=== PATIENT | male | born 1975 | race Caucasian/White ===

== ENCOUNTER 2019-06-15 09:27 | Emergency (ER) | payer OTHER ==
[2019-06-15] MEDS ORDERED: ONDANSETRON HCL INJ/PF 4 MG/2 ML SDV IV ONE ×2 (10:45→13:53)
[2019-06-15] MEDS ORDERED: NORMAL SALINE 1000 ML 1,000 ML IV ONE (10:45)
--- NOTE | 2019-06-15 10:49 | ER Document Report ---
ED Medical Screen (RME) - General Chief Complaint: Difficulty Swallowing Stated Complaint: DIFFICULTY SWALLOWING Time Seen by Provider: 06/15/19 10:37 TRAVEL OUTSIDE OF THE [place] IN LAST 30 DAYS: No - HPI Notes: 06/15/19 10:47 43 year old male to the ED with C/O difficulty swallowing for the past 36 hours. States he feels like something is stuck. States that he has been trying to put down simple fluids like ice chips but when he attempts this, he just vomits. Has a history of reflux and has been on Nexium for some times. Never had a scope. I have performed a medical screening exam on the patient and determined the patient will need further management by mainside provider. I have placed initial orders to help expedite his care. - Related Data Allergies/Adverse Reactions: acetaminophen [From Percocet] Allergy (Verified 06/15/19 10:42) oxycodone [From Percocet] Allergy (Verified 06/15/19 10:42) Home Medications: Synthroid, Fioricet, Torodol, Nexium Past Medical History - Past Medical History Cardiac Medical History: Reports: Hx Hypertension Neurological Medical History: Reports: Hx Migraine Endocrine Medical History: Reports: Hx Diabetes Mellitus Type 2 Past Surgical History: Reports: Hx Orthopedic Surgery - Arthroscopic knee surgery - Immunizations Hx Diphtheria, Pertussis, Tetanus Vaccination: Yes Physical Exam - Vital signs Vitals: Temp Pulse Resp BP Pulse Ox 97.9 F 110 H 14 123/89 H 95 06/15/19 10:08 06/15/19 10:08 06/15/19 10:08 06/15/19 10:08 06/15/19 10:08 Course - Vital Signs Vital signs: Temp Pulse Resp BP Pulse Ox 97.9 F 110 H 14 123/89 H 95 06/15/19 10:34 06/15/19 10:08 06/15/19 10:34 06/15/19 10:08 06/15/19 10:34
[2019-06-15 11:19] LABS: ABSOLUTE BASOPHILS # (AUTO) 0.1 10^3/uL (0.0-0.2); ABSOLUTE EOSINOPHILS # (AUTO) 0.1 10^3/uL (0.0-0.6); ABSOLUTE LYMPHOCYTES (AUTO) 1.8 10^3/uL (0.5-4.7); ABSOLUTE MONOCYTES (AUTO) 0.7 10^3/uL (0.1-1.4); ABSOLUTE NEUT (AUTO) 8.2 10^3/uL (1.7-8.2); BASOPHILS % (AUTO) 0.9 % (0-2); EOSINOPHILS % (AUTO) 0.7 % (0-6); HEMATOCRIT 47.3 % (37.9-51.0); HEMOGLOBIN 16.8 g/dL (13.5-17.0); LYMPHOCYTES % (AUTO) 16.9 % (13-45); MEAN CORPUSCULAR HEMOGLOBIN 30.8 pg (27.0-33.4); MEAN CORPUSCULAR HGB CONC 35.6 g/dL (32.0-36.0); MEAN CORPUSCULAR VOLUME 86 fl (80-97); MONOCYTES % (AUTO) 6.3 % (3-13); PLATELET COUNT 392 10^3/uL (150-450); RED BLOOD COUNT 5.47 10^6/uL (4.35-5.55); RED CELL DISTRIBUTION WIDTH 13.7 % (11.5-14.0); SEGMENTED NEUTROPHILS % (AUTO) 75.2 % (42-78); TOTAL CELLS COUNTED % (AUTO) 100 %; WHITE BLOOD COUNT 10.8 10^3/uL (4.0-10.5)
[2019-06-15 11:40] LABS: ALBUMIN 4.5 g/dL (3.5-5.0); ALKALINE PHOSPHATASE 102 U/L (38-126); ANION GAP 16 (5-19); ASPARTATE AMINO TRANSFERASE 31 U/L (17-59); BILIRUBIN,DIRECT 0.1 mg/dL (0.0-0.4); BILIRUBIN,TOTAL 0.9 mg/dL (0.2-1.3); BLOOD UREA NITROGEN 11 mg/dL (7-20); CALCIUM 9.7 mg/dL (8.4-10.2); CARBON DIOXIDE 24 mmol/L (22-30); CHLORIDE 101 mmol/L (98-107); GLUCOSE 100 mg/dL (75-110); POTASSIUM 3.7 mmol/L (3.6-5.0); TOTAL PROTEIN 7.9 g/dL (6.3-8.2)
--- NOTE | 2019-06-15 12:07 | RADIOLOGY REPORT (SQ) ---
EXAM DESCRIPTION: SOFT TISSUE NECK COMPLETED DATE/TIME: 06/15/2019 11:37 am REASON FOR STUDY: inability to swallow COMPARISON: None. NUMBER OF VIEWS: Two views. TECHNIQUE: AP and lateral radiographic image of the soft tissues of the neck. LIMITATIONS: None. FINDINGS: EPIGLOTTIS: Normal. Contour normal. Aryepiglottic folds normal. PREVERTEBRAL SOFT TISSUES: Normal. No soft tissue swelling. SUBGLOTTIC AREA: Normal. No narrowing. RETROPHARYNGEAL SPACE: Normal. No soft tissue masses. BONES: No significant findings. LUNG APICES: Normal. OTHER: No radiopaque foreign body. No other significant finding. IMPRESSION: NEGATIVE STUDY OF THE SOFT TISSUES OF THE NECK. TECHNICAL DOCUMENTATION: JOB ID: [id number] [employer]- All Rights Reserved Reading location - IP/workstation name: [email or web address]
[2019-06-15] MEDS ORDERED: GLUCAGON,HUMAN RECOMB 1 MG INJ IV ONE (13:53)
--- NOTE | 2019-06-15 13:55 | ER Document Report ---
ED ENT - General Chief Complaint: Difficulty Swallowing Stated Complaint: DIFFICULTY SWALLOWING Time Seen by Provider: 06/15/19 10:37 Primary Care Provider: ANTHONY CARRINGTON MD [NO LOCAL MD] - Follow up as needed Mode of Arrival: Ambulatory Information source: Patient Notes: Patient presents complaining of difficulty swallowing for the past 2 days. Patient states that he will occasionally vomit oral fluids in his saliva. Patient states that he will have similar episodes like this about 3 times a week although his symptoms do not usually last this long. Patient states that he has a pending GI referral, but his appointment is not until July 06. Patient [facility] does have a history of acid reflux although is not currently on any medications. Patient denies any precipitating event that caused his symptoms such as choking on a large piece of food. Patient states that if he concentrates he can force himself to keep liquids down. He states he does this by gritting his teeth. TRAVEL OUTSIDE OF THE [place] IN LAST 30 DAYS: No - HPI Onset/Duration: Waxing and waning Pain Level: 1 Associated symptoms: Difficulty swallowing Similar symptoms previously: Yes Recently seen / treated by doctor: No - Related Data Allergies/Adverse Reactions: acetaminophen [From Percocet] Allergy (Verified 06/15/19 10:42) oxycodone [From Percocet] Allergy (Verified 06/15/19 10:42) Home Medications: Synthroid, Fioricet, Torodol, Nexium Past Medical History - General Information source: Patient, Relative - Social History Smoking Status: Never Smoker Chew tobacco use (# tins/day): Yes Frequency of alcohol use: None Drug Abuse: None Occupation: None Lives with: Spouse/Significant other Family History: Reviewed & Not Pertinent Patient has suicidal ideation: No Patient has homicidal ideation: No - Past Medical History Cardiac Medical History: Reports: Hx Hypertension Neurological Medical History: Reports: Hx Migraine Endocrine Medical History: Reports: Hx Diabetes Mellitus Type 2 GI Medical History: Reports: Hx Gastroesophageal Reflux Disease Psychiatric Medical History: Reports: Hx Post Traumatic Stress Disorder Past Surgical History: Reports: Hx Orthopedic Surgery - Arthroscopic knee surgery - Immunizations Hx Diphtheria, Pertussis, Tetanus Vaccination: Yes Review of Systems - Review of Systems Constitutional: No symptoms reported EENT: Difficulty swallowing. denies: Throat pain Cardiovascular: No symptoms reported. denies: Chest pain Respiratory: No symptoms reported. denies: Cough, Short of breath Gastrointestinal: Vomiting. denies: Abdominal pain Genitourinary: No symptoms reported. denies: Dysuria Male Genitourinary: No symptoms reported Musculoskeletal: No symptoms reported Skin: No symptoms reported Hematologic/Lymphatic: No symptoms reported Neurological/Psychological: No symptoms reported Physical Exam - Vital signs Vitals: Temp Pulse Resp BP Pulse Ox 97.9 F 110 H 14 123/89 H 95 06/15/19 10:08 06/15/19 10:08 06/15/19 10:08 06/15/19 10:08 06/15/19 10:08 - General General appearance: Alert, Anxious In distress: None - HEENT Head: Normocephalic, Atraumatic Eyes: Normal Conjunctiva: Normal Nasal: Normal Mouth/Lips: Normal Mucous membranes: Normal Pharynx: Normal. No: Erythema, Tonsillar hypertrophy, Potential airway comprom. Neck: Normal, Supple. No: Lymphadenopathy - Respiratory Respiratory status: No respiratory distress Chest status: Nontender Breath sounds: Normal. No: Rales, Rhonchi, Stridor, Wheezing Chest palpation: Normal - Cardiovascular Rhythm: Regular Heart sounds: S1 appreciated, S2 appreciated Murmur: No - Abdominal Inspection: Normal Distension: No distension Tenderness: Nontender - Back Back: Normal, Nontender - Extremities General upper extremity: Normal inspection, Normal strength General lower extremity: Normal inspection, Normal strength - Neurological Neuro grossly intact: Yes Cognition: Normal [place] Coma Scale Eye Opening: Spontaneous [place] Coma Scale Verbal: Oriented [place] Coma Scale Motor: Obeys Commands [place] Coma Scale Total: 15 - Psychological Associated symptoms: Anxious - Skin Skin Temperature: Warm Skin Moisture: Dry Skin Color: Normal Course - Re-evaluation Re-evalutation: 06/15/19 15:04 Patient reports almost immediate symptomatic improvement after the glucagon. Patient is able to tolerate oral fluids and is able to drink ice chips and water. Patient is requesting to be discharged at this time. Patient encouraged to follow-up with GI doctor as planned as he will likely need an upper endoscopy procedure for further evaluation. Discussed worsening signs or symptoms that patient should return immediately for. Patient verbalized understanding and agrees with plan of care. - Vital Signs Vital signs: Temp Pulse Resp BP Pulse Ox 98.3 F 84 14 115/88 H 96 06/15/19 15:14 06/15/19 15:14 06/15/19 10:34 06/15/19 15:14 06/15/19 15:14 - Laboratory Result Diagrams: 06/15/19 10:58 06/15/19 10:58 Laboratory results interpreted by me: 06/15/19 10:58 WBC 10.8 H 06/15/19 15:04 Labs- Entire Visit 06/15/19 06/15/19 10:58 10:58 WBC 10.8 H RBC 5.47 Hgb 16.8 Hct 47.3 MCV 86 MCH 30.8 MCHC 35.6 RDW 13.7 Plt Count 392 Lymph % (Auto) 16.9 [place] % (Auto) 6.3 Eos % (Auto) 0.7 Baso % (Auto) 0.9 Absolute Neuts (auto) 8.2 Absolute Lymphs (auto) 1.8 Absolute Monos (auto) 0.7 Absolute Eos (auto) 0.1 Absolute Basos (auto) 0.1 Seg Neutrophils % 75.2 Sodium 141.1 Potassium 3.7 Chloride 101 Carbon Dioxide 24 Anion Gap 16 BUN 11 Creatinine 1.05 Est GFR ( Amer) > 60 Est GFR (MDRD) Non-Af > 60 Glucose 100 Calcium 9.7 Total Bilirubin 0.9 Direct Bilirubin 0.1 Neonat Total Bilirubin Not Reportable Neonat Direct Bilirubin Not Reportable Neonat Indirect Bili Not Reportable AST 31 ALT 42 Alkaline Phosphatase 102 Total Protein 7.9 Albumin 4.5 - Diagnostic Test Radiology reviewed: Reports reviewed Discharge - Discharge Clinical Impression: Dysphagia, unspecified Qualifiers: Dysphagia type: unspecified Qualified Code(s): R13.10 - Dysphagia, unspecified GERD (gastroesophageal reflux disease) Qualifiers: Esophagitis presence: esophagitis presence not specified Qualified Code(s): K21.9 - Gastro-esophageal reflux disease without esophagitis Condition: Stable Disposition: HOME, SELF-CARE Instructions: Acid-Suppressing Medication ([facility]), Dysphagia ([facility]), Reflux Disease (GERD) ([facility]), Sucralfate ([facility]) Additional Instructions: Return immediately for any new or worsening symptoms Followup with your primary care provider, call tomorrow to make a followup appointment Follow-up with cyber threat analyst as planned Prescriptions: Sucralfate [Carafate 1 gm Tablet] 1 gm PO ACHS #40 tablet Omeprazole Magnesium [Prilosec Otc] 20 mg PO DAILY #15 tablet. Referrals: ANTHONY CARRINGTON MD [NO LOCAL MD] - Follow up as needed
[2019-06-15 15:19] VITALS: BP 115/88
== END 2019-06-15 15:23 | disposition home or self-care (01) ==
LOC: ER 09:27
DX: K21.9 Gastro-esophageal reflux disease without esophagitis (principal); R13.10 Dysphagia, unspecified; R11.10 Vomiting, unspecified; I10 Essential (primary) hypertension; E11.9 Type 2 diabetes mellitus without complications; G43.909 Migraine, unspecified, not intractable, without status migrainosus; Z79.891 Long term (current) use of opiate analgesic; Z79.899 Other long term (current) drug therapy; Z88.8 Allergy status to other drugs, medicaments and biological substances; Z88.6 Allergy status to analgesic agent; Z88.5 Allergy status to narcotic agent; Z72.0 Tobacco use
CPT/HCPCS: 36415; 85025; 80053; 70360; J1610; J2405; J7030; 96361; 96374; 96375; 99284

== ENCOUNTER 2019-11-10 13:28 | Emergency (ER) | payer OTHER ==
--- NOTE | 2019-11-10 13:50 | ER Document Report ---
ED Medical Screen (RME) - General Chief Complaint: Ankle Pain Stated Complaint: LEFT ANKLE PAIN Time Seen by Provider: 11/10/19 13:38 Notes: Patient presents complaining of left ankle tenderness for the past week. Patient did see his primary doctor yesterday for this complaint and had a negative x-ray performed. Patient does have a history of gout although states that this is not typically where he has gout flareups and he does not feel that this is gout. I have greeted and performed a rapid initial assessment of this patient. A comprehensive ED assessment and evaluation of the patient, analysis of test results and completion of the medical decision making process will be conducted by additional ED providers. TRAVEL OUTSIDE OF THE [place] IN LAST 30 DAYS: No - Related Data Allergies/Adverse Reactions: acetaminophen [From Percocet] Allergy (Verified 06/15/19 10:42) oxycodone [From Percocet] Allergy (Verified 06/15/19 10:42) Past Medical History - Past Medical History Cardiac Medical History: Reports: Hx Hypertension Neurological Medical History: Reports: Hx Migraine Endocrine Medical History: Reports: Hx Diabetes Mellitus Type 2 GI Medical History: Reports: Hx Gastroesophageal Reflux Disease Psychiatric Medical History: Reports: Hx Post Traumatic Stress Disorder Past Surgical History: Reports: Hx Orthopedic Surgery - Arthroscopic knee surgery - Immunizations Hx Diphtheria, Pertussis, Tetanus Vaccination: Yes Physical Exam - General Notes: Patient with exquisite tenderness with very light palpation of the left ankle, patient hostile towards provider, charge nurse advised that patient will need to see a different provider
--- NOTE | 2019-11-10 15:21 | RADIOLOGY REPORT (SQ) ---
EXAM DESCRIPTION: ANKLE LEFT COMPLETE IMAGES COMPLETED DATE/TIME: 11/10/2019 3:15 pm REASON FOR STUDY: pain/swelling COMPARISON: None. NUMBER OF VIEWS: Three views. TECHNIQUE: AP, lateral, and oblique radiographic images acquired of the left ankle. LIMITATIONS: None. FINDINGS: MINERALIZATION: Normal. BONES: No acute fracture or dislocation. No worrisome bone lesions. JOINTS: No effusions. SOFT TISSUES: No soft tissue swelling. No foreign body. OTHER: No other significant finding. IMPRESSION: NEGATIVE STUDY OF THE LEFT ANKLE. NO RADIOGRAPHIC EVIDENCE OF ACUTE INJURY. TECHNICAL DOCUMENTATION: JOB ID: [id number] [employer]- All Rights Reserved Reading location - IP/workstation name: [email or web address]
[2019-11-10 15:26] LABS: ALBUMIN 3.9 g/dL (3.5-5.0); ALKALINE PHOSPHATASE 87 U/L (38-126); ANION GAP 8 (5-19); ASPARTATE AMINO TRANSFERASE 33 U/L (17-59); BILIRUBIN,DIRECT 0.1 mg/dL (0.0-0.4); BILIRUBIN,TOTAL 0.6 mg/dL (0.2-1.3); BLOOD UREA NITROGEN 12 mg/dL (7-20); CALCIUM 9.3 mg/dL (8.4-10.2); CARBON DIOXIDE 30 mmol/L (22-30); CHLORIDE 97 mmol/L (98-107); GLUCOSE 108 mg/dL (75-110); POTASSIUM 3.9 mmol/L (3.6-5.0)
--- NOTE | 2019-11-10 16:19 | ER Document Report ---
ED Extremity Problem, Lower - General Chief Complaint: Ankle Pain Stated Complaint: LEFT ANKLE PAIN Time Seen by Provider: 11/10/19 13:38 Primary Care Provider: GEOFFREY THORPE PA [Primary Care Provider] - Follow up as needed Mode of Arrival: Ambulatory Information source: Patient TRAVEL OUTSIDE OF THE [place] IN LAST 30 DAYS: No - HPI Notes: Patient presents with left ankle pain. He states his been hurting for approximately a week and a half. He states he woke up like this with the pain. It is severe. It is worse with movement and better with rest. He states he feels that it has become swollen and red. No new types of exercises or movements that he is doing with his leg. No known trauma or injury. He states he has a history of gout but this does not feel like gout. He did recently see his primary care doctor who did an x-ray. X-ray was negative. Primary care doctor treated him with steroids for 5 days and after this he felt that it did get better but now it has returned. The pain is constant. Is severe. It is worse with movement and better with rest. It does radiate up the left leg. No other injuries or joint trouble. - Related Data Allergies/Adverse Reactions: acetaminophen [From Percocet] Allergy (Verified 11/10/19 13:49) oxycodone [From Percocet] Allergy (Verified 11/10/19 13:49) Home Medications: vit d, synthroid, allopurinol, omeprazole, zanaflex, fish oil Past Medical History - General Information source: Patient - Social History Smoking Status: Never Smoker Chew tobacco use (# tins/day): No Frequency of alcohol use: None Drug Abuse: None Family History: Reviewed & Not Pertinent Patient has homicidal ideation: No - Past Medical History Cardiac Medical History: Reports: Hx Hypertension Neurological Medical History: Reports: Hx Migraine Endocrine Medical History: Reports: Hx Diabetes Mellitus Type 2 GI Medical History: Reports: Hx Gastroesophageal Reflux Disease Psychiatric Medical History: Reports: Hx Post Traumatic Stress Disorder Past Surgical History: Reports: Hx Orthopedic Surgery - Arthroscopic knee surge ry - Immunizations Hx Diphtheria, Pertussis, Tetanus Vaccination: Yes Review of Systems - Review of Systems Constitutional: denies: Chills, Fever Cardiovascular: denies: Chest pain, Palpitations Respiratory: denies: Cough, Short of breath -: Yes All other systems reviewed and negative Physical Exam - Vital signs Vitals: Temp Pulse Resp BP Pulse Ox 98.3 F 104 H 16 123/94 H 96 11/10/19 13:44 11/10/19 13:44 11/10/19 13:44 11/10/19 13:44 11/10/19 13:44 Interpretation: Normal - General General appearance: Appears well, Alert - HEENT Head: Normocephalic, Atraumatic Eyes: Normal Pupils: PERRL - Respiratory Respiratory status: No respiratory distress Chest status: Nontender Breath sounds: Normal Chest palpation: Normal - Cardiovascular Rhythm: Regular Heart sounds: Normal auscultation Murmur: No - Abdominal Inspection: Normal Distension: No distension Bowel sounds: Normal Tenderness: Nontender Organomegaly: No organomegaly - Back Back: Normal, Nontender - Extremities General upper extremity: Normal inspection, Nontender, Normal color, Normal ROM, Normal temperature General lower extremity: Normal temperature, Other - Left ankle has some anterior erythema and swelling. However the skin is not taut. There is no pitting edema. There is no joint effusion of the left ankle. The swelling seems to be in the anterior navicular region. He has a 2+ dorsalis pedis pulse on the left. He does have limited range of motion secondary to pain. Exam seem most consistent with a tendinitis.. No: Kana's sign - Neurological Neuro grossly intact: Yes Cognition: Normal Orientation: AAOx4 [place] Coma Scale Eye Opening: Spontaneous Analia Coma Scale Verbal: Oriented [place] Coma Scale Motor: Obeys Commands [place] Coma Scale Total: 15 Speech: Normal Motor strength normal: LUE, RUE, LLE, RLE Sensory: Normal - Psychological Associated symptoms: Normal affect, Normal mood - Skin Skin Temperature: Warm Skin Moisture: Dry Skin Color: Normal Course - Re-evaluation Re-evalutation: 11/10/19 16:14 Patient presents with left ankle pain but without effusion. Exam does not appear consistent with infection or gout. Exam does appear most consistent with tendinitis. Will treat with immobilization pain medicine anti-inflammatories and refer him to orthopedics. - Vital Signs Vital signs: Temp Pulse Resp BP Pulse Ox 98.3 F 104 H 16 123/94 H 96 11/10/19 13:44 11/10/19 13:44 11/10/19 13:44 11/10/19 13:44 11/10/19 13:44 - Laboratory Result Diagrams: 11/10/19 13:56 Laboratory results interpreted by me: 11/10/19 13:56 Sodium 134.5 L Chloride 97 L - Diagnostic Test Radiology reviewed: Image reviewed, Reports reviewed Procedures - Immobilization Left Ankle Time completed: 16:14 Pre-Proc Neuro Vasc Exam: Normal Immobilizer type: Ankle stirrup Performed by: RN Post-Proc Neuro Vasc Exam: Normal Alignment checked and good: Yes Discharge - Discharge Clinical Impression: Left ankle tendinitis Condition: Stable Disposition: HOME, SELF-CARE Instructions: Tendonitis ([facility]) Additional Instructions: Please call orthopedics as soon as possible to arrange follow-up Prescriptions: Prednisone 10 mg PO DAILY 12 Days #42 [id number] Forms: Return to Work Referrals: GEOFFREY THORPE PA [Primary Care Provider] - Follow up as needed GIOVANNI BENSON MD [ACTIVE STAFF] - Follow up in 3-5 days
[2019-11-10 16:27] LABS: ABSOLUTE BASOPHILS # (AUTO) 0.1 10^3/uL (0.0-0.2); ABSOLUTE EOSINOPHILS # (AUTO) 0.1 10^3/uL (0.0-0.6); ABSOLUTE LYMPHOCYTES (AUTO) 2.3 10^3/uL (0.5-4.7); ABSOLUTE MONOCYTES (AUTO) 0.8 10^3/uL (0.1-1.4); ABSOLUTE NEUT (AUTO) 9.9 10^3/uL (1.7-8.2); BASOPHILS % (AUTO) 0.9 % (0-2); EOSINOPHILS % (AUTO) 0.7 % (0-6); HEMATOCRIT 47.5 % (37.9-51.0); HEMOGLOBIN 16.7 g/dL (13.5-17.0); LYMPHOCYTES % (AUTO) 17.4 % (13-45); MEAN CORPUSCULAR HEMOGLOBIN 30.4 pg (27.0-33.4); MEAN CORPUSCULAR HGB CONC 35.3 g/dL (32.0-36.0); MEAN CORPUSCULAR VOLUME 86 fl (80-97); MONOCYTES % (AUTO) 6.1 % (3-13); PLATELET COUNT 375 10^3/uL (150-450); RED BLOOD COUNT 5.51 10^6/uL (4.35-5.55); RED CELL DISTRIBUTION WIDTH 14.1 % (11.5-14.0); SEGMENTED NEUTROPHILS % (AUTO) 74.9 % (42-78); TOTAL CELLS COUNTED % (AUTO) 100 %; WHITE BLOOD COUNT 13.3 10^3/uL (4.0-10.5)
[2019-11-10 17:08] VITALS: BP 175/107
== END 2019-11-10 17:08 | disposition home or self-care (01) ==
LOC: ER 13:28
PROC: 2W3RX1Z Immobilization of Left Lower Leg using Splint (ICD-10-PCS; principal; 2019-11-10)
DX: M77.52 Other enthesopathy of left foot and ankle (principal); M25.572 Pain in left ankle and joints of left foot; M79.89 Other specified soft tissue disorders; Z88.8 Allergy status to other drugs, medicaments and biological substances; Z79.899 Other long term (current) drug therapy; I10 Essential (primary) hypertension; E11.9 Type 2 diabetes mellitus without complications
CPT/HCPCS: 36415; 80053; 84550; 85025; 99283